=== PATIENT | male | born 1980 | race Caucasian/White ===

== ENCOUNTER 2024-01-19 22:13 | Emergency (ER) | payer SELFPAY ==
[~2024-01-19 22:13] MED LIST: Iopamidol-370 76% 500 ML MDV (1 ML CHARGE) ONE
[2024-01-19 23:24] LABS: #Basophils 0.04 10x3/uL (0.0-0.2); %Basophils 0.7 % (0.0-1.0); %Eosinophils 1.9 % (0.0-10.0); %Lymphocytes 29.1 % (21.0-51.0); %Neutrophils 61.9 % (42.0-75.0); Hematocrit 34.1 % (42.0-52.0); Hemoglobin 11.5 g/dL (14.0-18.0); Mean Corpuscular HGB CONC 33.7 g/dL (32.0-36.0); Mean Corpuscular Hemoglobin 30.9 pg (27.0-31.0); Mean Corpuscular Volume 91.7 fL (78.0-98.0); Mean Platelet Volume 8.9 fL (7.4-10.4); Platelet Count 118 10x3/uL (130-400); RBC Distribution Width 14.3 % (11.5-14.5); Red Blood Cell (RBC) Count 3.72 mill/uL (4.70-6.10)
[2024-01-19 23:34] LABS: ALT (SGPT) 19 U/L (8-55); AST (SGOT) 102 U/L (5-34); Albumin 2.3 g/dL (3.5-5.0); Alkaline Phosphatase 98 U/L (40-110); Anion Gap 13 mmol/L (10-20); BUN (Urea Nitrogen) Less than 4 mg/dL (8.9-20.6); Bilirubin, Total 1.7 mg/dL (0.2-1.2); Calc. Creatinine Clearance 0 mL/min (70-130); Calcium 7.4 mg/dL (7.8-10.44); Carbon Dioxide 21 mmol/L (22-29); Chloride 103 mmol/L (98-107); Estimated GFR 117; Globulin 4.7 g/dL (2.4-3.5); Glucose 73 mg/dL (70-105); Lipase 44 U/L (8-78); Potassium 3.7 mmol/L (3.5-5.1); Sodium 133 mmol/L (136-145)
== END 2024-01-20 02:15 | disposition home or self-care (01) ==
LOC: ERS 22:13
DX: K74.60 Unspecified cirrhosis of liver (principal); K42.9 Umbilical hernia without obstruction or gangrene; I10 Essential (primary) hypertension; E11.9 Type 2 diabetes mellitus without complications; F17.210 Nicotine dependence, cigarettes, uncomplicated; F17.220 Nicotine dependence, chewing tobacco, uncomplicated; F17.290 Nicotine dependence, other tobacco product, uncomplicated; Z55.6 Problems related to health literacy
CPT/HCPCS: 36415; 74177; 80053; 83690; 85025; 93005; Q9967

== ENCOUNTER 2024-01-29 17:51 | Emergency (ER) | payer SELFPAY ==
[2024-01-29 18:34] LABS: #Basophils Less than 0.03 10x3/uL (0.0-0.2); %Basophils 0.3 % (0.0-1.0); %Eosinophils 0.4 % (0.0-10.0); %Monocytes 9.8 % (0.0-10.0); %Neutrophils 64.2 % (42.0-75.0); Hemoglobin 11.3 g/dL (14.0-18.0); Mean Corpuscular HGB CONC 34.2 g/dL (32.0-36.0); Mean Corpuscular Hemoglobin 31.2 pg (27.0-31.0); Mean Corpuscular Volume 91.2 fL (78.0-98.0); Mean Platelet Volume 9.1 fL (7.4-10.4); Platelet Count 162 10x3/uL (130-400); Red Blood Cell (RBC) Count 3.62 mill/uL (4.70-6.10)
[2024-01-29] MEDS ORDERED: Morphine 4 MG/ML VIAL ONE ×2 (18:35→22:33)
[2024-01-29] MEDS ORDERED: Ondansetron PF 4 MG/2 ML Vial ONE ×2 (18:35→22:33)
[2024-01-29 18:48] LABS: INR-International Normal Ratio 1.5; Prothrombin Time 18.3 sec (12.0-14.7)
[2024-01-29 18:49] LABS: PTT 40.6 sec (22.9-36.1)
[2024-01-29 19:11] LABS: ALT (SGPT) 17 U/L (8-55); AST (SGOT) 60 U/L (5-34); Albumin 2.4 g/dL (3.5-5.0); Alkaline Phosphatase 95 U/L (40-110); Anion Gap 13 mmol/L (10-20); BUN (Urea Nitrogen) 8 mg/dL (8.9-20.6); Bilirubin, Total 1.5 mg/dL (0.2-1.2); Calc. Creatinine Clearance 0 mL/min (70-130); Calcium 8.1 mg/dL (7.8-10.44); Carbon Dioxide 23 mmol/L (22-29); Chloride 99 mmol/L (98-107); Estimated GFR 115; Globulin 5.1 g/dL (2.4-3.5); Glucose 93 mg/dL (70-105); Lipase 24 U/L (8-78); Potassium 3.5 mmol/L (3.5-5.1); Protein, Total 7.5 g/dL (6.0-8.3); Sodium 131 mmol/L (136-145)
[2024-01-29 20:14] LABS: Bacteria/HPF None Seen HPF (None Seen); Bilirubin Negative (Negative); Blood, Urine Negative (Negative); CAUTI Indications for Culture Pelvic or flank pain; Clarity Clear (Clear); Glucose, Urine (Dipstick) Normal (Negative); Ketone, Urine Negative (Negative); Leukocyte Negative Leu/uL (Negative); Nitrite Negative (Negative); Protein, Urine (Dipstick) Negative (Neg-Trace); RBC/HPF 0-3 HPF (0-3); Specific Gravity, Urine 1.037 (1.002-1.036); Squamous Epithelial None Seen HPF (0-3); Urobilinogen Normal mg/dL (Less than 2); WBC/HPF 0-3 HPF (0-3)
[2024-01-29 20:18] LABS: Urine Culture Reflex No No
[2024-01-30] MEDS ORDERED: Morphine 4 MG/ML VIAL ONE ×2 (02:36→09:08)
[2024-01-30] MEDS ORDERED: Metoclopramide HCl 10 MG (2 mL) VIAL ONE (02:36)
[2024-01-30] MEDS ORDERED: Ondansetron PF 4 MG/2 ML Vial ONE (09:08)
== END 2024-01-30 10:00 | disposition short-term general hospital (02) ==
LOC: ERS 17:51
DX: K42.9 Umbilical hernia without obstruction or gangrene (principal); K40.90 Unilateral inguinal hernia, without obstruction or gangrene, not specified as recurrent; N43.3 Hydrocele, unspecified; E11.9 Type 2 diabetes mellitus without complications; I10 Essential (primary) hypertension; F17.290 Nicotine dependence, other tobacco product, uncomplicated; Z79.899 Other long term (current) drug therapy
CPT/HCPCS: 74177; 80053; 81001; 83690; 85025; 85610; 85730; 96374; 96375; 96376; J2272; J2405; J2765

== ENCOUNTER 2024-03-18 18:24 | Emergency (ER) | payer SELFPAY ==
[2024-03-18] MEDS ORDERED: Aspirin Chewable 81 MG TAB ONE (18:45)
[2024-03-18] MEDS ORDERED: Morphine 4 MG/ML VIAL ONE (18:46)
[2024-03-18 19:45] LABS: #Basophils 0.03 10x3/uL (0.0-0.2); %Basophils 0.6 % (0.0-1.0); %Eosinophils 1.2 % (0.0-10.0); %Lymphocytes 22.7 % (21.0-51.0); %Monocytes 8.8 % (0.0-10.0); %Neutrophils 66.3 % (42.0-75.0); Hematocrit 31.9 % (42.0-52.0); Hemoglobin 10.4 g/dL (14.0-18.0); Mean Corpuscular HGB CONC 32.6 g/dL (32.0-36.0); Mean Corpuscular Hemoglobin 30.4 pg (27.0-31.0); Mean Corpuscular Volume 93.3 fL (78.0-98.0); Platelet Count 122 10x3/uL (130-400); RBC Distribution Width 15.1 % (11.5-14.5); Red Blood Cell (RBC) Count 3.42 mill/uL (4.70-6.10)
[2024-03-18 19:57] LABS: ALT (SGPT) 18 U/L (8-55); AST (SGOT) 65 U/L (5-34); Albumin 2.8 g/dL (3.5-5.0); Alkaline Phosphatase 113 U/L (40-110); Anion Gap 14 mmol/L (10-20); BUN (Urea Nitrogen) 7 mg/dL (8.9-20.6); Calc. Creatinine Clearance 0 mL/min (70-130); Calcium 8.4 mg/dL (7.8-10.44); Carbon Dioxide 23 mmol/L (22-29); Chloride 108 mmol/L (98-107); Estimated GFR 118; Globulin 5.2 g/dL (2.4-3.5); Glucose 76 mg/dL (70-105); Lipase 38 U/L (8-78); Potassium 3.5 mmol/L (3.5-5.1); Sodium 141 mmol/L (136-145)
[2024-03-18 20:00] LABS: Troponin I 0.011 ng/mL (< 0.028)
[2024-03-18 20:08] LABS: INR-International Normal Ratio 1.7; Prothrombin Time 19.8 sec (12.0-14.7)
[2024-03-18 20:09] LABS: PTT 39.4 sec (22.9-36.1)
[2024-03-18 20:18] LABS: D-Dimer Test 7.54 mcg/mL (0.27-0.43)
[2024-03-18 22:51] LABS: RBC Count-Automated (BF) 272 /cu.mm; WBC/Nucleated-Auto (BF) 136 /cu.mm
[2024-03-18 23:37] LABS: BF Color Yellow; Body Fluid Source Ascites Body Fluid; Clarity Clear (Clear); Tube # 1
[2024-03-18 23:39] LABS: BF Segmented Neutrophils 12 %; Cell Count Non Hematic 80 %; Lymphocytes 8 %
[2024-03-19 00:16] LABS: Troponin I Less than 0.010 ng/mL (< 0.028)
== END 2024-03-18 23:59 | disposition home or self-care (01) ==
LOC: ERS 18:24
DX: K74.60 Unspecified cirrhosis of liver (principal); R14.0 Abdominal distension (gaseous); R07.89 Other chest pain; E11.9 Type 2 diabetes mellitus without complications; I10 Essential (primary) hypertension; F17.290 Nicotine dependence, other tobacco product, uncomplicated
CPT/HCPCS: 36415; 49083; 71046; 71275; 74177; 80053; 82945; 83605; 83690; 83880; 84157; 84484; 85025; 85060; 85379; 85610; 85730; 87040; 87070; 87205; 89051; 93005; 94760; 96374; J2270; Q9967

== ENCOUNTER 2024-04-02 12:39 | Emergency (ER) | payer SELFPAY ==
[2024-04-02] MEDS ORDERED: Iopamidol-370 76% 500 ML MDV (1 ML CHARGE) ONE (12:59)
[2024-04-02 14:13] LABS: #Basophils 0.04 10x3/uL (0.0-0.2); %Basophils 0.7 % (0.0-1.0); %Monocytes 9.3 % (0.0-10.0); %Neutrophils 66.8 % (42.0-75.0); Hematocrit 35.3 % (42.0-52.0); Hemoglobin 11.8 g/dL (14.0-18.0); Mean Corpuscular HGB CONC 33.4 g/dL (32.0-36.0); Mean Corpuscular Hemoglobin 30.5 pg (27.0-31.0); Mean Corpuscular Volume 91.2 fL (78.0-98.0); Mean Platelet Volume 9.6 fL (7.4-10.4); Platelet Count 145 10x3/uL (130-400); RBC Distribution Width 15.3 % (11.5-14.5); Red Blood Cell (RBC) Count 3.87 mill/uL (4.70-6.10)
[2024-04-02 14:40] LABS: ALT (SGPT) 21 U/L (Less than 45); AST (SGOT) 120 U/L (11-34); Albumin 3.1 g/dL (3.1-4.5); Alkaline Phosphatase 99 U/L (40-110); Anion Gap 12 mmol/L (10-20); BUN (Urea Nitrogen) 5 mg/dL (8.9-20.6); Bilirubin, Total 1.6 mg/dL (0.3-1.2); Calc. Creatinine Clearance 0 mL/min (70-130); Calcium 8.7 mg/dL (7.8-10.44); Carbon Dioxide 23 mmol/L (22-29); Chloride 105 mmol/L (98-107); Estimated GFR 117; Globulin 5.5 g/dL (2.4-3.5); Glucose 70 mg/dL (70-105); Potassium 3.7 mmol/L (3.5-5.1); Protein, Total 8.6 g/dL (6.0-8.3); Sodium 136 mmol/L (136-145)
[2024-04-02] MEDS ORDERED: Morphine 4 MG/ML VIAL ONE ×2 (17:42→21:13)
[2024-04-02] MEDS ORDERED: Cefepime 2 GM VIAL ONE (17:48)
[2024-04-02] MEDS ORDERED: Sodium Chloride 0.9% 100 ML ONE (17:48)
[2024-04-02] MEDS ORDERED: Vancomycin 1 GM/200 ML (FROZEN) BAG ONE (17:56)
== END 2024-04-03 02:05 | disposition short-term general hospital (02) ==
LOC: ERS 12:39
DX: T83.712A Erosion of implanted urethral mesh to surrounding organ or tissue, initial encounter (principal); M79.3 Panniculitis, unspecified; E11.9 Type 2 diabetes mellitus without complications; I10 Essential (primary) hypertension; F17.290 Nicotine dependence, other tobacco product, uncomplicated
CPT/HCPCS: 36415; 36416; 74177; 80053; 85025; 87070; 87077; 87186; 87205; 96374; 96375; 96376; J0692; J2270; J3370; Q9967

== ENCOUNTER 2024-11-06 18:04 | Inpatient (IN) | payer OTHER, SELFPAY ==
[2024-11-06 18:38] LABS: #Basophils 0.07 10x3/uL (0.0-0.2); #Eosinophils 0.03 10x3/uL (0.0-0.7); #Monocytes 0.58 10x3/uL (0.11-0.59); #Neutrophils 5.04 10x3/uL (1.40-6.50); %Basophils 1.0 % (0.0-1.0); %Eosinophils 0.4 % (0.0-10.0); %Lymphocytes 21.4 % (21.0-51.0); %Monocytes 7.9 % (0.0-10.0); %Neutrophils 68.8 % (42.0-75.0); Hematocrit 22.1 % (42.0-52.0); Hemoglobin 7.2 g/dL (14.0-18.0); Mean Corpuscular Hemoglobin 31.6 pg (27.0-31.0); Mean Corpuscular Volume 96.9 fL (78.0-98.0); Platelet Count 48 10x3/uL (130-400); Red Blood Cell (RBC) Count 2.28 mill/uL (4.70-6.10); White Blood Cell (WBC) Count 7.33 10x3/uL (4.8-10.8)
[2024-11-06 18:39] LABS: Lipase 68 U/L (8-78)
[2024-11-06 18:42] LABS: Acetaminophen Less than 10 mcg/mL (Less than 10); Salicylate Less than 8.0 mg/dL (Less than 8.0)
[2024-11-06 18:51] LABS: ALT (SGPT) 28 U/L (Less than 45); AST (SGOT) 189 U/L (11-34); Albumin 2.0 g/dL (3.1-4.5); Alkaline Phosphatase 134 U/L (40-110); Anion Gap 14 mmol/L (10-20); BUN (Urea Nitrogen) Less than 4 mg/dL (8.9-20.6); Bilirubin, Total 6.2 mg/dL (0.3-1.2); Calc. Creatinine Clearance 0 mL/min (70-130); Calcium 6.9 mg/dL (7.8-10.44); Carbon Dioxide 21 mmol/L (22-29); Chloride 107 mmol/L (98-107); Globulin 4.6 g/dL (2.4-3.5); Glucose 91 mg/dL (70-105); Potassium 2.8 mmol/L (3.5-5.1); Sodium 139 mmol/L (136-145)
[2024-11-06 19:06] LABS: INR-International Normal Ratio 2.2; Prothrombin Time 24.3 sec (12.0-14.7)
[2024-11-06 19:07] LABS: PTT 52.5 sec (22.9-36.1)
[2024-11-06 19:09] LABS: Osmolality, Serum 356 mOsm/kg (275-295)
[2024-11-06 19:34] LABS: Anisocytosis SLIGHT = 6-15 cells HPF (0-5); Burr Cells MODERATE= 6-15 cells HPF (0-1); Platelet Adequacy Comment Significant Decrease; Polychromasia SLIGHT = 2-3 cells HPF (0-2); Schistocytes SLIGHT = 2-5 cells HPF (0-1); Target Cells SLIGHT = 2-5 cells HPF (0-1)
[2024-11-06 21:28] LABS: Bacteria/HPF None Seen HPF (None Seen); CAUTI Indications for Culture Immunosuppressed; Glucose, Urine (Dipstick) Normal (Negative); Leukocyte Negative Leu/uL (Negative); Protein, Urine (Dipstick) Negative (Neg-Trace); RBC/HPF None Seen HPF (0-3); Specific Gravity, Urine 1.006 (1.002-1.036); WBC/HPF 0-3 HPF (0-3)
[2024-11-06 21:33] LABS: Urine Culture Reflex Yes Yes
[2024-11-06 21:36] LABS: Cocaine Metabolite Screen Negative (Negative); THC/Cannabinoid Screen Negative (Negative); Tricyclic Screen Negative (Negative)
[2024-11-06] MEDS ORDERED: CALCIUM GLUC 1 GM/NS 50 ML IV Bag ONE (22:39)
[2024-11-06] MEDS ORDERED: Pantoprazole 40 MG VIAL ONE ×2 (22:40→22:41)
[2024-11-06] MEDS ORDERED: Potassium Chloride 20 MEQ (100 mL) BAG ONE ×2 (22:40)
[2024-11-06] MEDS ORDERED: Electrolyte Replacement Protocol 1 EACH FS SCH (23:45)
[2024-11-07 01:15] VITALS: BMI 24.7
[2024-11-07] MEDS: Potassium Chloride 20 MEQ in Premix 1 BAG IVPB SCH ×2 (02:22→13:30)
[2024-11-07] MEDS: Multivitamins, Adult 10 ML, Thiamine HCl 100 MG, Folic Acid 1 MG in Dextrose 5 %-0.45 %... IV SCH (02:26)
[2024-11-07] MEDS: Ondansetron PF 4 MG/2 ML Vial IVP PRN (02:37)
[2024-11-07 04:51] LABS: ALT (SGPT) 26 U/L (Less than 45); AST (SGOT) 184 U/L (11-34); Albumin 1.9 g/dL (3.1-4.5); Alkaline Phosphatase 121 U/L (40-110); Anion Gap 14 mmol/L (10-20); BUN (Urea Nitrogen) Less than 4 mg/dL (8.9-20.6); Bilirubin, Total 6.0 mg/dL (0.3-1.2); Calc. Creatinine Clearance 195 mL/min (70-130); Calcium 6.8 mg/dL (7.8-10.44); Carbon Dioxide 21 mmol/L (22-29); Chloride 107 mmol/L (98-107); Globulin 4.3 g/dL (2.4-3.5); Glucose 97 mg/dL (70-105); Potassium 3.1 mmol/L (3.5-5.1); Sodium 139 mmol/L (136-145)
[2024-11-07 05:16] LABS: #Basophils 0.06 10x3/uL (0.0-0.2); #Eosinophils 0.04 10x3/uL (0.0-0.7); #Monocytes 0.43 10x3/uL (0.11-0.59); #Neutrophils 3.51 10x3/uL (1.40-6.50); %Basophils 1.2 % (0.0-1.0); %Eosinophils 0.8 % (0.0-10.0); %Lymphocytes 22.1 % (21.0-51.0); %Monocytes 8.3 % (0.0-10.0); %Neutrophils 67.2 % (42.0-75.0); Hematocrit 21.3 % (42.0-52.0); Hemoglobin 6.9 g/dL (14.0-18.0); Mean Corpuscular Hemoglobin 31.4 pg (27.0-31.0); Mean Corpuscular Volume 96.8 fL (78.0-98.0); Platelet Count 38 10x3/uL (130-400); Red Blood Cell (RBC) Count 2.20 mill/uL (4.70-6.10); White Blood Cell (WBC) Count 5.21 10x3/uL (4.8-10.8)
[2024-11-07] MEDS ORDERED: Octreotide Acetate 1,250 MCG in Sodium Chloride 0.9% 250 ML 250 ML IVPB SCH (07:45)
[2024-11-07] MEDS: Acetaminophen 325 MG TAB PO PRN (08:36)
[2024-11-07] MEDS: Nadolol 40 MG TAB PO SCH (08:36)
[2024-11-07] MEDS ORDERED: Pantoprazole 40 MG VIAL IVP SCH (09:00)
[2024-11-07 09:14] LABS: Magnesium 1.8 mg/dL (1.6-2.6)
[2024-11-07] MEDS ORDERED: Sodium Bicarbonate 2.5 MEQ/5 ML SDV ONE (09:22)
[2024-11-07] MEDS ORDERED: Lidocaine 1% w/Epinephrine 1:100K 20 ML VIAL ONE (09:22)
[2024-11-07 11:13] LABS: RBC Count-Automated (BF) 1344 /cu.mm; WBC/Nucleated-Auto (BF) 86 /cu.mm
[2024-11-07 11:30] LABS: Fluid, LDH 51.0 U/L (Not Available); Fluid, Protein 0.8 g/dL (Not Available)
[2024-11-07 11:35] LABS: BF Segmented Neutrophils 15 %; Cell Count Non Hematic 67 %
[2024-11-07 12:00] LABS: Hematocrit 23.5 % (42.0-52.0); Hemoglobin 7.9 g/dL (14.0-18.0)
[2024-11-07] MEDS: cefTRIAXone\\ROCEPHIN 1 GM in Sodium Chloride 0.9% 100 ML IVPB SCH (12:32)
[2024-11-07] MEDS: Pantoprazole 80 MG, Admixture Fee 1 EACH in Sodium Chloride 0.9% 100 ML IVP SCH (12:35)
[2024-11-07] MEDS: Rifaximin 550 MG TAB PO SCH (12:36)
[2024-11-07] MEDS: Furosemide 20 MG TAB PO SCH (12:36)
[2024-11-07] MEDS: Folic Acid 1 MG TAB PO SCH (12:36)
[2024-11-07] MEDS: Multivit, Therapeutic 1 TAB PO SCH (12:36)
[2024-11-07] MEDS: Spironolactone 25 MG TAB PO SCH (12:36)
[2024-11-07] MEDS: Pantoprazole 40 MG VIAL IVP SCH ×2 (12:37→21:15)
[2024-11-07] MEDS: Albumin 25% 25 GM (100 mL) BOT IVPB SCH ×2 (12:50→15:45)
[2024-11-08 03:58] LABS: #Basophils 0.04 10x3/uL (0.0-0.2); #Eosinophils 0.05 10x3/uL (0.0-0.7); #Monocytes 0.45 10x3/uL (0.11-0.59); #Neutrophils 4.79 10x3/uL (1.40-6.50); %Basophils 0.6 % (0.0-1.0); %Eosinophils 0.8 % (0.0-10.0); %Lymphocytes 18.6 % (21.0-51.0); %Monocytes 6.8 % (0.0-10.0); %Neutrophils 72.6 % (42.0-75.0); Hematocrit 22.7 % (42.0-52.0); Hemoglobin 7.8 g/dL (14.0-18.0); Mean Corpuscular Hemoglobin 32.1 pg (27.0-31.0); Mean Corpuscular Volume 93.4 fL (78.0-98.0); Platelet Count 32 10x3/uL (130-400); Red Blood Cell (RBC) Count 2.43 mill/uL (4.70-6.10); White Blood Cell (WBC) Count 6.60 10x3/uL (4.8-10.8)
[2024-11-08 04:03] LABS: Osmolality, Serum 278 mOsm/kg (275-295)
[2024-11-08 04:05] LABS: INR-International Normal Ratio 2.4; Prothrombin Time 26.3 sec (12.0-14.7)
[2024-11-08 04:06] LABS: ALT (SGPT) 23 U/L (Less than 45); AST (SGOT) 180 U/L (11-34); Albumin 2.5 g/dL (3.1-4.5); Alkaline Phosphatase 104 U/L (40-110); Anion Gap 11 mmol/L (10-20); BUN (Urea Nitrogen) 4 mg/dL (8.9-20.6); Bilirubin, Total 9.8 mg/dL (0.3-1.2); Calc. Creatinine Clearance 178 mL/min (70-130); Calcium 7.5 mg/dL (7.8-10.44); Carbon Dioxide 24 mmol/L (22-29); Chloride 105 mmol/L (98-107); Globulin 4.2 g/dL (2.4-3.5); Glucose 79 mg/dL (70-105); Magnesium 1.6 mg/dL (1.6-2.6); Potassium 3.4 mmol/L (3.5-5.1); Sodium 137 mmol/L (136-145)
[2024-11-08] MEDS: PHOS-NAK 1 PKT PACK PO SCH (08:40)
[2024-11-08] MEDS: Magnesium 2 GM/50 ML(in water) 2 GM in Premix 1 BAG IVPB SCH (08:40)
[2024-11-08] MEDS: Potassium Chloride 20 MEQ in Premix 1 BAG IVPB SCH (08:42)
[2024-11-08 15:22] LABS: Hematocrit 26.0 % (42.0-52.0); Hemoglobin 8.4 g/dL (14.0-18.0)
[2024-11-08 15:35] LABS: Potassium 3.6 mmol/L (3.5-5.1)
[2024-11-09 03:54] LABS: #Basophils 0.03 10x3/uL (0.0-0.2); #Eosinophils 0.04 10x3/uL (0.0-0.7); #Monocytes 0.65 10x3/uL (0.11-0.59); #Neutrophils 5.48 10x3/uL (1.40-6.50); %Basophils 0.4 % (0.0-1.0); %Eosinophils 0.5 % (0.0-10.0); %Lymphocytes 18.6 % (21.0-51.0); %Monocytes 8.5 % (0.0-10.0); %Neutrophils 71.3 % (42.0-75.0); Hematocrit 21.8 % (42.0-52.0); Hemoglobin 7.1 g/dL (14.0-18.0); Mean Corpuscular Hemoglobin 31.4 pg (27.0-31.0); Mean Corpuscular Volume 96.5 fL (78.0-98.0); Platelet Count 38 10x3/uL (130-400); Red Blood Cell (RBC) Count 2.26 mill/uL (4.70-6.10); White Blood Cell (WBC) Count 7.68 10x3/uL (4.8-10.8)
[2024-11-09 04:01] LABS: ALT (SGPT) 21 U/L (Less than 45); AST (SGOT) 133 U/L (11-34); Albumin 2.1 g/dL (3.1-4.5); Alkaline Phosphatase 89 U/L (40-110); Anion Gap 9 mmol/L (10-20); BUN (Urea Nitrogen) 7 mg/dL (8.9-20.6); Bilirubin, Total 9.0 mg/dL (0.3-1.2); Calc. Creatinine Clearance 168 mL/min (70-130); Calcium 7.2 mg/dL (7.8-10.44); Carbon Dioxide 24 mmol/L (22-29); Chloride 106 mmol/L (98-107); Globulin 3.9 g/dL (2.4-3.5); Glucose 96 mg/dL (70-105); Magnesium 1.8 mg/dL (1.6-2.6); Potassium 3.4 mmol/L (3.5-5.1); Sodium 136 mmol/L (136-145)
[2024-11-09] MEDS: Magnesium 2 GM/50 ML(in water) 2 GM in Premix 1 BAG IVPB SCH (07:21)
[2024-11-09 12:30] LABS: Potassium 3.7 mmol/L (3.5-5.1)
[2024-11-09] MEDS: Thiamine 100 MG TAB PO SCH (21:25)
[2024-11-09] MEDS: Albumin 25% 25 GM (100 mL) BOT IVPB SCH (22:26)
[2024-11-10 00:08] LABS: Hep C IgG Ab NONREACTIVE S/CO (NonReactive); Hep C Index 0.15 S/CO (0-0.79)
[2024-11-10] MEDS: Furosemide 40 MG (4 mL) VIAL SLOW IVP SCH (02:14)
[2024-11-10 02:43] LABS: ALT (SGPT) 22 U/L (Less than 45); AST (SGOT) 128 U/L (11-34); Albumin 2.4 g/dL (3.1-4.5); Alkaline Phosphatase 88 U/L (40-110); Anion Gap 15 mmol/L (10-20); BUN (Urea Nitrogen) 9 mg/dL (8.9-20.6); Bilirubin, Total 8.2 mg/dL (0.3-1.2); Calc. Creatinine Clearance 184 mL/min (70-130); Calcium 7.4 mg/dL (7.8-10.44); Carbon Dioxide 15 mmol/L (22-29); Chloride 108 mmol/L (98-107); Globulin 4.0 g/dL (2.4-3.5); Glucose 80 mg/dL (70-105); Potassium 3.6 mmol/L (3.5-5.1); Sodium 134 mmol/L (136-145)
[2024-11-10 02:47] LABS: #Basophils 0.04 10x3/uL (0.0-0.2); #Eosinophils 0.10 10x3/uL (0.0-0.7); #Monocytes 0.64 10x3/uL (0.11-0.59); #Neutrophils 4.44 10x3/uL (1.40-6.50); %Basophils 0.6 % (0.0-1.0); %Eosinophils 1.5 % (0.0-10.0); %Lymphocytes 20.1 % (21.0-51.0); %Monocytes 9.7 % (0.0-10.0); %Neutrophils 67.6 % (42.0-75.0); Hematocrit 24.6 % (42.0-52.0); Hemoglobin 7.5 g/dL (14.0-18.0); Mean Corpuscular Hemoglobin 30.7 pg (27.0-31.0); Mean Corpuscular Volume 100.8 fL (78.0-98.0); Platelet Count 42 10x3/uL (130-400); Red Blood Cell (RBC) Count 2.44 mill/uL (4.70-6.10); White Blood Cell (WBC) Count 6.57 10x3/uL (4.8-10.8)
[2024-11-10 04:18] LABS: Hep B Surf Ag NONREACTIVE S/CO (NonReactive)
[2024-11-10 04:34] LABS: Magnesium 2.0 mg/dL (1.6-2.6)
[2024-11-10] MEDS: Albumin 25% 25 GM (100 mL) BOT IVPB SCH (04:47)
[2024-11-10] MEDS: Magnesium 2 GM/50 ML(in water) 2 GM in Premix 1 BAG IVPB SCH (07:55)
[2024-11-10] MEDS: PNEUMOC 20-VAL CONJ-DIP CRM/PF 0.5 ML SYRINGE IM ONE (07:59)
[2024-11-11 06:24] LABS: Magnesium 1.9 mg/dL (1.6-2.6)
[2024-11-11 07:46] LABS: #Basophils 0.03 10x3/uL (0.0-0.2); #Eosinophils 0.08 10x3/uL (0.0-0.7); #Monocytes 0.62 10x3/uL (0.11-0.59); #Neutrophils 2.56 10x3/uL (1.40-6.50); %Basophils 0.6 % (0.0-1.0); %Eosinophils 1.7 % (0.0-10.0); %Lymphocytes 28.7 % (21.0-51.0); %Monocytes 13.4 % (0.0-10.0); %Neutrophils 55.2 % (42.0-75.0); Hematocrit 21.7 % (42.0-52.0); Hemoglobin 6.9 g/dL (14.0-18.0); Mean Corpuscular Hemoglobin 31.7 pg (27.0-31.0); Mean Corpuscular Volume 99.5 fL (78.0-98.0); Platelet Count 46 10x3/uL (130-400); Red Blood Cell (RBC) Count 2.18 mill/uL (4.70-6.10); White Blood Cell (WBC) Count 4.64 10x3/uL (4.8-10.8)
[2024-11-11 07:53] LABS: Anion Gap 13 mmol/L (10-20); BUN (Urea Nitrogen) 8 mg/dL (8.9-20.6); Calc. Creatinine Clearance 163 mL/min (70-130); Calcium 7.8 mg/dL (7.8-10.44); Carbon Dioxide 23 mmol/L (22-29); Chloride 108 mmol/L (98-107); Glucose 84 mg/dL (70-105); Potassium 3.2 mmol/L (3.5-5.1); Sodium 141 mmol/L (136-145)
[2024-11-11] MEDS: Magnesium 2 GM/50 ML(in water) 2 GM in Premix 1 BAG IVPB SCH (08:18)
[2024-11-11 11:11] LABS: ALT (SGPT) 22 U/L (Less than 45); AST (SGOT) 109 U/L (11-34); Albumin 2.7 g/dL (3.1-4.5); Alkaline Phosphatase 103 U/L (40-110); Bilirubin, Direct 3.3 mg/dL (0.1-0.3); Bilirubin, Total 5.8 mg/dL (0.3-1.2)
[2024-11-11 23:57] LABS: Hematocrit 25.5 % (42.0-52.0); Hemoglobin 8.2 g/dL (14.0-18.0); Platelet Count 73 10x3/uL (130-400)
[2024-11-12] MEDS: Guaifenesin DM 100-10/5 ML UDCUP PO PRN (05:04)
[2024-11-12 06:24] LABS: #Basophils 0.04 10x3/uL (0.0-0.2); #Eosinophils 0.09 10x3/uL (0.0-0.7); #Monocytes 0.88 10x3/uL (0.11-0.59); #Neutrophils 3.32 10x3/uL (1.40-6.50); %Basophils 0.6 % (0.0-1.0); %Eosinophils 1.4 % (0.0-10.0); %Lymphocytes 30.4 % (21.0-51.0); %Monocytes 14.0 % (0.0-10.0); %Neutrophils 53.0 % (42.0-75.0); Hematocrit 25.6 % (42.0-52.0); Hemoglobin 8.3 g/dL (14.0-18.0); Mean Corpuscular Hemoglobin 31.7 pg (27.0-31.0); Mean Corpuscular Volume 97.7 fL (78.0-98.0); Platelet Count 66 10x3/uL (130-400); Red Blood Cell (RBC) Count 2.62 mill/uL (4.70-6.10); White Blood Cell (WBC) Count 6.28 10x3/uL (4.8-10.8)
[2024-11-12 06:37] LABS: ALT (SGPT) 26 U/L (Less than 45); AST (SGOT) 119 U/L (11-34); Albumin 2.5 g/dL (3.1-4.5); Alkaline Phosphatase 112 U/L (40-110); Anion Gap 12 mmol/L (10-20); BUN (Urea Nitrogen) 6 mg/dL (8.9-20.6); Bilirubin, Total 5.7 mg/dL (0.3-1.2); Calc. Creatinine Clearance 163 mL/min (70-130); Calcium 7.8 mg/dL (7.8-10.44); Carbon Dioxide 22 mmol/L (22-29); Chloride 110 mmol/L (98-107); Globulin 3.4 g/dL (2.4-3.5); Glucose 89 mg/dL (70-105); Potassium 3.6 mmol/L (3.5-5.1); Sodium 140 mmol/L (136-145)
[2024-11-12] MEDS ORDERED: Nadolol 40 MG TAB PO SCH (22:55)
[2024-11-12] MEDS ORDERED: Albumin 25% 25 GM (100 mL) BOT IVPB PRN (22:57)
[2024-11-13 07:01] LABS: #Basophils 0.06 10x3/uL (0.0-0.2); #Eosinophils 0.10 10x3/uL (0.0-0.7); #Monocytes 0.90 10x3/uL (0.11-0.59); #Neutrophils 3.65 10x3/uL (1.40-6.50); %Basophils 1.0 % (0.0-1.0); %Eosinophils 1.6 % (0.0-10.0); %Lymphocytes 24.7 % (21.0-51.0); %Monocytes 14.3 % (0.0-10.0); %Neutrophils 58.1 % (42.0-75.0); Hematocrit 26.3 % (42.0-52.0); Hemoglobin 8.5 g/dL (14.0-18.0); Mean Corpuscular Hemoglobin 31.4 pg (27.0-31.0); Mean Corpuscular Volume 97.0 fL (78.0-98.0); Platelet Count 76 10x3/uL (130-400); Red Blood Cell (RBC) Count 2.71 mill/uL (4.70-6.10); White Blood Cell (WBC) Count 6.28 10x3/uL (4.8-10.8)
[2024-11-13 07:14] LABS: ALT (SGPT) 25 U/L (Less than 45); AST (SGOT) 116 U/L (11-34); Albumin 2.3 g/dL (3.1-4.5); Alkaline Phosphatase 111 U/L (40-110); Anion Gap 10 mmol/L (10-20); BUN (Urea Nitrogen) 7 mg/dL (8.9-20.6); Bilirubin, Total 5.3 mg/dL (0.3-1.2); Calc. Creatinine Clearance 174 mL/min (70-130); Calcium 7.6 mg/dL (7.8-10.44); Carbon Dioxide 24 mmol/L (22-29); Chloride 109 mmol/L (98-107); Globulin 3.5 g/dL (2.4-3.5); Glucose 98 mg/dL (70-105); Potassium 3.7 mmol/L (3.5-5.1); Sodium 139 mmol/L (136-145)
[2024-11-13] MEDS: Nadolol 40 MG TAB PO SCH (09:54)
[2024-11-13] MEDS: Spironolactone 25 MG TAB PO SCH (09:55)
[2024-11-13 12:26] VITALS: BMI 24.7
[2024-11-13] MEDS: Albumin 25% 25 GM (100 mL) BOT IVPB SCH (22:21)
[2024-11-13] MEDS: Furosemide 20 MG (2 mL) VIAL SLOW IVP SCH (23:21)
[2024-11-14 06:58] LABS: ALT (SGPT) 25 U/L (Less than 45); AST (SGOT) 108 U/L (11-34); Albumin 2.7 g/dL (3.1-4.5); Alkaline Phosphatase 95 U/L (40-110); Anion Gap 12 mmol/L (10-20); BUN (Urea Nitrogen) 10 mg/dL (8.9-20.6); Bilirubin, Total 5.5 mg/dL (0.3-1.2); Calc. Creatinine Clearance 148 mL/min (70-130); Calcium 7.8 mg/dL (7.8-10.44); Carbon Dioxide 26 mmol/L (22-29); Chloride 107 mmol/L (98-107); Globulin 3.4 g/dL (2.4-3.5); Glucose 90 mg/dL (70-105); Potassium 3.8 mmol/L (3.5-5.1); Sodium 141 mmol/L (136-145)
[2024-11-14 06:59] LABS: #Basophils 0.05 10x3/uL (0.0-0.2); #Eosinophils 0.06 10x3/uL (0.0-0.7); #Monocytes 0.79 10x3/uL (0.11-0.59); #Neutrophils 2.63 10x3/uL (1.40-6.50); %Basophils 1.0 % (0.0-1.0); %Eosinophils 1.2 % (0.0-10.0); %Lymphocytes 26.3 % (21.0-51.0); %Monocytes 16.4 % (0.0-10.0); %Neutrophils 54.7 % (42.0-75.0); Hematocrit 26.1 % (42.0-52.0); Hemoglobin 8.4 g/dL (14.0-18.0); Mean Corpuscular Hemoglobin 31.3 pg (27.0-31.0); Mean Corpuscular Volume 97.4 fL (78.0-98.0); Platelet Count 75 10x3/uL (130-400); Red Blood Cell (RBC) Count 2.68 mill/uL (4.70-6.10); White Blood Cell (WBC) Count 4.82 10x3/uL (4.8-10.8)
[2024-11-14 07:26] LABS: Anisocytosis SLIGHT = 6-15 cells HPF (0-5); Burr Cells SLIGHT = 2-5 cells HPF (0-1); Platelet Adequacy Comment Platelets Decreased; Polychromasia SLIGHT = 2-3 cells HPF (0-2)
[2024-11-14 10:09] LABS: INR-International Normal Ratio 2.7; Prothrombin Time 28.6 sec (12.0-14.7)
[2024-11-14 10:10] LABS: PTT 49.5 sec (22.9-36.1)
[2024-11-14] MEDS ORDERED: Gabapentin 300 MG CAP PO PRN (16:01)
[2024-11-14] MEDS: Albumin 25% 25 GM (100 mL) BOT IVPB SCH (22:36)
[2024-11-14] MEDS: Furosemide 20 MG (2 mL) VIAL SLOW IVP SCH (22:56)
[2024-11-14 23:51] VITALS: TEMP 98.8
[2024-11-15 06:38] LABS: #Basophils 0.05 10x3/uL (0.0-0.2); #Eosinophils 0.09 10x3/uL (0.0-0.7); #Monocytes 0.86 10x3/uL (0.11-0.59); #Neutrophils 2.45 10x3/uL (1.40-6.50); %Basophils 1.0 % (0.0-1.0); %Eosinophils 1.8 % (0.0-10.0); %Lymphocytes 30.2 % (21.0-51.0); %Monocytes 17.3 % (0.0-10.0); %Neutrophils 49.3 % (42.0-75.0); Hematocrit 25.8 % (42.0-52.0); Hemoglobin 8.5 g/dL (14.0-18.0); Mean Corpuscular Hemoglobin 32.2 pg (27.0-31.0); Mean Corpuscular Volume 97.7 fL (78.0-98.0); Platelet Count 79 10x3/uL (130-400); Red Blood Cell (RBC) Count 2.64 mill/uL (4.70-6.10); White Blood Cell (WBC) Count 4.97 10x3/uL (4.8-10.8)
[2024-11-15 06:42] LABS: INR-International Normal Ratio 2.4; PTT 52.0 sec (22.9-36.1); Prothrombin Time 26.4 sec (12.0-14.7)
[2024-11-15] MEDS: Pantoprazole 40 MG DR.TAB PO SCH (08:00)
[2024-11-15 08:21] VITALS: BP 107/67
== END 2024-11-15 14:14 | disposition home or self-care (01) | DRG 432 ==
LOC: ERS 18:04 → PCU 23:01 → IMCU/EMU 11-08 23:44 → CCU 11-09 11:34 → IMCU/EMU 11-09 11:52 → T4-B 11-10 22:33
PROVIDERS: ADMIT Student in an Organized Health Care Education/Training Program; ATTEND Student in an Organized Health Care Education/Training Program
PROC: 30233N1 Transfusion of Nonautologous Red Blood Cells into Peripheral Vein, Percutaneous Approach (ICD-10-PCS; 2024-11-06)
PROC: HZ2ZZZZ Detoxification Services for Substance Abuse Treatment (ICD-10-PCS; 2024-11-06)
PROC: 30233J1 Transfusion of Nonautologous Serum Albumin into Peripheral Vein, Percutaneous Approach (ICD-10-PCS; 2024-11-06)
PROC: 0W9G3ZZ Drainage of Peritoneal Cavity, Percutaneous Approach (ICD-10-PCS; principal; 2024-11-07)
DX: K70.31 Alcoholic cirrhosis of liver with ascites (principal); G93.41 Metabolic encephalopathy; J96.01 Acute respiratory failure with hypoxia; F10.239 Alcohol dependence with withdrawal, unspecified; K92.0 Hematemesis; J90 Pleural effusion, not elsewhere classified; E51.2 Wernicke's encephalopathy; K70.40 Alcoholic hepatic failure without coma; E11.9 Type 2 diabetes mellitus without complications; I10 Essential (primary) hypertension; N18.9 Chronic kidney disease, unspecified; F41.9 Anxiety disorder, unspecified; F17.290 Nicotine dependence, other tobacco product, uncomplicated; D64.9 Anemia, unspecified; E88.09 Other disorders of plasma-protein metabolism, not elsewhere classified; E83.42 Hypomagnesemia; E83.51 Hypocalcemia; E87.6 Hypokalemia; D69.6 Thrombocytopenia, unspecified; Y90.8 Blood alcohol level of 240 mg/100 ml or more; Z98.890 Other specified postprocedural states; Z88.0 Allergy status to penicillin; Z88.8 Allergy status to other drugs, medicaments and biological substances
CPT/HCPCS: 36415; 36416; 36430; 49083; 71045; 76705; 80048; 80053; 80076; 80306; 80307; 81001; 82105; 82140; 82274; 82693; 83605; 83615; 83690; 83735; 83880; 83930; 84100; 84157; 85025; 85046; 85060; 85610; 85730; 86803; 86850; 86900; 86901; 87086; 87340; 89051; 93005; 96361; 96365; 96368; 96374; 96375; J0613; J0696; J1940; J2060; J2354; J2470; J3411; J3475; J3480; J7030; J7042; P9016; P9035; P9047; Q0162

== ENCOUNTER 2024-11-20 23:57 | Emergency (ER) | payer OTHER ==
[2024-11-21 01:42] LABS: #Basophils 0.16 10x3/uL (0.0-0.2); #Eosinophils 0.21 10x3/uL (0.0-0.7); #Monocytes 0.88 10x3/uL (0.11-0.59); #Neutrophils 6.49 10x3/uL (1.40-6.50); %Basophils 1.6 % (0.0-1.0); %Eosinophils 2.1 % (0.0-10.0); %Lymphocytes 22.8 % (21.0-51.0); %Monocytes 8.7 % (0.0-10.0); %Neutrophils 64.2 % (42.0-75.0); Hematocrit 29.0 % (42.0-52.0); Hemoglobin 9.3 g/dL (14.0-18.0); Mean Corpuscular Hemoglobin 31.6 pg (27.0-31.0); Mean Corpuscular Volume 98.6 fL (78.0-98.0); Platelet Count 125 10x3/uL (130-400); Red Blood Cell (RBC) Count 2.94 mill/uL (4.70-6.10); White Blood Cell (WBC) Count 10.10 10x3/uL (4.8-10.8)
[2024-11-21 01:52] LABS: ALT (SGPT) 35 U/L (Less than 45); AST (SGOT) 140 U/L (11-34); Albumin 3.1 g/dL (3.1-4.5); Alkaline Phosphatase 252 U/L (40-110); Anion Gap 14 mmol/L (10-20); BUN (Urea Nitrogen) 6 mg/dL (8.9-20.6); Bilirubin, Total 5.2 mg/dL (0.3-1.2); Calc. Creatinine Clearance 0 mL/min (70-130); Calcium 8.3 mg/dL (7.8-10.44); Carbon Dioxide 21 mmol/L (22-29); Chloride 110 mmol/L (98-107); Globulin 4.5 g/dL (2.4-3.5); Glucose 106 mg/dL (70-105); Potassium 3.8 mmol/L (3.5-5.1); Sodium 141 mmol/L (136-145)
[2024-11-21 02:06] LABS: Lipase 75 U/L (8-78); Magnesium 2.2 mg/dL (1.6-2.6)
[2024-11-21 02:10] LABS: Acetaminophen Less than 10 mcg/mL (Less than 10); Salicylate Less than 8.0 mg/dL (Less than 8.0)
[2024-11-21 04:01] LABS: Free T4 (Free Thyroxine) 0.91 ng/dL (0.70-1.48); Thyroid Stimulating Hormone 2.0053 uIU/mL (0.35-4.94)
[2024-11-21] MEDS ORDERED: Iopamidol 370 76% 100 ML VIAL ONE (13:49)
== END 2024-11-21 06:33 | disposition home or self-care (01) ==
LOC: ERS 23:57
DX: F10.129 Alcohol abuse with intoxication, unspecified (principal); E11.9 Type 2 diabetes mellitus without complications; I10 Essential (primary) hypertension; F17.290 Nicotine dependence, other tobacco product, uncomplicated; Y90.6 Blood alcohol level of 120-199 mg/100 ml
CPT/HCPCS: 36415; 70450; 71275; 74177; 80053; 80307; 82140; 83605; 83690; 83735; 83880; 84439; 84443; 84484; 85025; 93005; Q9967